=== PATIENT | female | born 2005 | race Caucasian/White ===

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

== ENCOUNTER 2025-01-26 06:59 | Inpatient (IN) | payer MEDICAID, SELFPAY ==
[2025-01-26] VITALS (41 sets, daily range): BP systolic 93–143; BP diastolic 49–92; PULSE 81–132; RESP 14–18; TEMP 36.3–36.9; O2SAT 94–100; BMI 25.2
[2025-01-26] MEDS: Lactated Ringers 1,000 ML 999 ML IV ×3 (07:25→23:59)
[2025-01-26 07:44] LABS: Absolute Lymphocyte Count 0.87 X10^3/uL (0.83-4.51); Absolute Neutrophil Count 10.7 X10^3/uL (2.0-7.7); Basophil# 0.01 X10^3/uL; Basophil% 0.1 % (0-1); Hematocrit 36.6 % (37-47); Lymphocyte # 0.87 X10^3/ul (0.83-4.51); Lymphocyte % 7.3 % (19-41); Mean Corp Hgb Conc 35.5 g/dL (32-36); Mean Corpuscular Hgb 30.4 pg (27.0-32.0); Mean Corpuscular Volume 85.7 fL (81-99); Mean Platelet Vol. 11.3 fl (6.2-12.0); Monocyte# 0.34 X10^3/uL; Monocyte% 2.8 % (0-10); NRBC Flagged by Analyzer 0 % (0-5); Neutrophil # 10.68 X10^3/uL (2.7-7.7); Neutrophil % 89.4 % (47-70); Platelet Count 183 K/mm3 (150-450); RBC Distribution Width SD 43.3 fl (35.1-43.9); Red Blood Count 4.27 M/mm3 (4.2-5.4)
[2025-01-26 08:14] LABS: Syphilis Antibodies Nonreactive (Nonreactive)
[2025-01-26] MEDS: fentaNYL-bupivacaine (epidural) 100 ML BAG EPIDURAL (08:25)
[2025-01-26] MEDS: Lactated Ringers 1,000 ML 200 ML IV (08:30)
--- NOTE | 2025-01-26 09:03 | PCM.HP.OB ---
HPI - General General Date of Admission: 01/26/25 HPI Narrative JOHNSON PARKER, is a 20 F who presents at 40w4d in active labor. Upon arrival, 8cm dilated and requesting epidural for pain management, coping well. Denies any vaginal bleeding or fluid leakage. Maternal Data Information TAL Calculator Estimated Delivery Date Method Current WG Current Estimate 01/22/25 Manual 40w 4d PFSH PFS Medical History (Updated 01/26/25 @ 09:08 by Guerda Pickens CNM) Hx of fracture of finger Home Medications ?Medication ?Instructions ?Recorded ?Last Taken ?Type ferrous sulfate 325 mg (65 mg 325 mg PO MOWEFR 10/16/24 Unknown History iron) tablet vit no.95-ferrous 1 tab PO DAILY 10/16/24 Unknown History fumarate 28 mg-folic acid 800 mcg tablet () Allergy/AdvReac Type Severity Reaction Status Date / Time No Known Allergies Allergy Verified 01/26/25 06:48 Social History Smoking Status: Never smoker History Elective abortions Hx Para 0 Spontaneous abortions Hx # Term Pregnancies Ectopic pregnancies Hx # Pregnancies Multiple births # of living children NST FHR Rate Baby A Baseline: 135 Variability:: Moderate Accelerations:: 15 x 15 Decelerations:: None FHR Category:: Category I Uterine Activity:: every 2-3 minutes, strong ROS Constitutional Constitutional: Reports systems reviewed and no addt'l complaints, except as documented; Denies headache(s) Eyes Eyes: Denies acute decrease in peripheral vision, blurry vision or change in vision ENT HEENT: Reports systems reviewed and no addt'l complaints, except as documented Cardiovascular Cardiovascular: Denies chest pain or dizziness Respiratory/Chest Respiratory/Chest: Denies cough, dyspnea, dyspnea on exertion, shortness of breath at rest or shortness of breath with exertion Gastrointestinal Gastrointestinal: Denies abdominal pain, diarrhea, nausea or vomiting Genitourinary Genitourinary: Denies abdominal discomfort Musculoskeletal Musculoskeletal: Denies limited range of motion Integumentary Integumentary: Reports systems reviewed and no addt'l complaints, except as documented Neurologic Neurologic: Reports systems reviewed and no addt'l complaints, except as documented Psychiatric Psychiatric: Reports systems reviewed and no addt'l complaints, except as documented Endocrine Endocrinology: Reports systems reviewed and no addt'l complaints, except as documented Hematologic/Lymphatic Hematologic/Lymphatic: Reports systems reviewed and no addt'l complaints, except as documented Allergic/Immunologic Allergic/Immunologic: Reports systems reviewed and no addt'l complaints, except as documented Vital Signs Vital Signs Vital Signs: 01/26/25 06:43 01/26/25 06:43 01/26/25 06:43 Temperature Temperature Source Temporal Pulse Rate Respiratory Rate 14 Blood Pressure BP Systolic BP Diastolic Pulse Ox 97 01/26/25 06:43 01/26/25 06:44 01/26/25 06:44 Temperature 98.4 F Temperature Source Pulse Rate 106 H Respiratory Rate Blood Pressure BP Systolic BP Diastolic Pulse Ox 97 01/26/25 06:47 01/26/25 06:47 01/26/25 07:42 Temperature Temperature Source Pulse Rate 93 Respiratory Rate Blood Pressure 132/86 H 143/81 H BP Systolic 132 143 BP Diastolic 86 81 Pulse Ox 01/26/25 07:42 01/26/25 07:42 01/26/25 07:42 Temperature Temperature Source Temporal Pulse Rate 104 H Respiratory Rate 16 Blood Pressure BP Systolic BP Diastolic Pulse Ox 01/26/25 07:42 01/26/25 08:10 01/26/25 08:10 Temperature 97.9 F Temperature Source Pulse Rate 122 H Respiratory Rate Blood Pressure 134/90 H BP Systolic 134 BP Diastolic 90 Pulse Ox 01/26/25 08:10 01/26/25 08:10 01/26/25 08:15 Temperature Temperature Source Pulse Rate 93 Respiratory Rate Blood Pressure 131/88 H BP Systolic 131 BP Diastolic 88 Pulse Ox 99 01/26/25 08:15 01/26/25 08:15 01/26/25 08:23 Temperature Temperature Source Pulse Rate 109 H Respiratory Rate Blood Pressure 138/92 H BP Systolic 138 BP Diastolic 92 Pulse Ox 100 01/26/25 08:23 01/26/25 08:23 01/26/25 08:23 Temperature Temperature Source Pulse Rate 100 102 H Respiratory Rate Blood Pressure BP Systolic BP Diastolic Pulse Ox 99 01/26/25 08:23 01/26/25 08:25 01/26/25 08:25 Temperature Temperature Source Pulse Rate 109 H Respiratory Rate 16 Blood Pressure 137/89 H BP Systolic 137 BP Diastolic 89 Pulse Ox 01/26/25 08:28 01/26/25 08:28 01/26/25 08:30 Temperature Temperature Source Pulse Rate 106 H Respiratory Rate Blood Pressure 138/76 H BP Systolic 138 BP Diastolic 76 Pulse Ox 99 01/26/25 08:30 01/26/25 08:31 01/26/25 08:31 Temperature Temperature Source Pulse Rate 126 H 123 H Respiratory Rate Blood Pressure 137/70 H BP Systolic 137 BP Diastolic 70 Pulse Ox 01/26/25 08:33 01/26/25 08:33 01/26/25 08:35 Temperature Temperature Source Pulse Rate 132 H Respiratory Rate Blood Pressure 134/78 H BP Systolic 134 BP Diastolic 78 Pulse Ox 99 01/26/25 08:35 01/26/25 08:38 01/26/25 08:38 Temperature Temperature Source Pulse Rate 109 H 102 H Respiratory Rate Blood Pressure BP Systolic BP Diastolic Pulse Ox 99 01/26/25 08:41 01/26/25 08:41 01/26/25 08:43 Temperature Temperature Source Pulse Rate 106 H 103 H Respiratory Rate Blood Pressure 130/80 H BP Systolic 130 BP Diastolic 80 Pulse Ox 01/26/25 08:43 01/26/25 08:46 01/26/25 08:46 Temperature Temperature Source Pulse Rate 102 H Respiratory Rate Blood Pressure 127/76 H BP Systolic 127 BP Diastolic 76 Pulse Ox 99 01/26/25 08:48 01/26/25 08:48 01/26/25 08:50 Temperature Temperature Source Pulse Rate 117 H Respiratory Rate Blood Pressure 114/64 BP Systolic 114 BP Diastolic 64 Pulse Ox 99 01/26/25 08:50 01/26/25 08:56 01/26/25 08:56 Temperature Temperature Source Pulse Rate 127 H 108 H Respiratory Rate Blood Pressure 134/84 H BP Systolic 134 BP Diastolic 84 Pulse Ox Weight Weight: 152 lb Body Mass Index (BMI) 25.2 Physical Exam Const alert and oriented x3 General Appearance: cooperative Orientation / Consciousness: awake, oriented to person, oriented to place and oriented to time Exam Limitations: no limitations HEENT normocephalic Head and Scalp: normal to inspection, normocephalic and atraumatic Face and Sinus: normal facial exam Eyes General Eye: normal appearance of both eyes Neck full ROM Chest Chest: symmetrical chest wall rise Resp normal respiratory effort and normal air movement Auscultation: clear to auscultation bilaterally Cardio regular rate, regular rhythm, S1 normal heart sound, S2 normal heart sound, no murmurs, no rub, no gallops and no clicks GI normal to inspection, nondistended, normoactive bowel sounds and non-tender appearance of the vagina normal Bladder / Kidney Exam: no CVA tenderness Manual OB Exam: estimated gestational size appropriate, presentation cephalic, dilated 10, effaced 100, station +2 and other AROM clear fluid, small amount Back/Spine normal ROM Extremity normal to inspection and full ROM Skin no rashes or lesions noted Neuro oriented x3, CN's II-XII intact bilaterally and moves all extremities Sensorium / Orientation: awake, alert and oriented to person Motor Exam: clonus absent Deep Tendon Reflexes: Rt Patellar (L4): 2+ and Lt Patellar (L4): 2+ Labs Labs Labs: Blood Type B POSITIVE Antibody Screen Pending Hct 36.6 % (37-47) L Hgb 13.0 g/dL (12.0-15.0) Syphilis Total Ab Nonreactive (Nonreactive) GBS negative RPR negative 1hr GCT negative Rubella Immune HBsAG negative HepC negative HIV negative B positive Rubella Immune Assessment & Plan (1) 40 weeks gestation of : (2) Active labor at term: PLAN: Plan 1) Admit to labor and delivery 2) Routine labs 3) Continuous EFM 4) Epidural for pain management 5) Expect vaginal delivery soon 6) collaborative physician and notified of patient status, above assessment, and plan.
[2025-01-26] MEDS: TRANEXAMIC ACID 1,000 MG in 0.9% Normal Saline (100mL Bag) 100 ML 440 MG IV (11:45)
[2025-01-26] MEDS: Cefazolin 2 GM in 0.9% Normal Saline (100mL Bag) 100 ML IV (11:48)
[2025-01-26] MEDS: Azithromycin 500 MG in 0.9% Normal Saline (250mL Bag) 250 ML 255 MG IV (11:54)
--- NOTE | 2025-01-26 12:20 | OP.PCM_ITS ---
Maternal Data Information TAL Calculator Estimated Delivery Date Method Current WG Current Estimate 01/22/25 Manual 40w 4d Operative Report (OB) Details Procedure Type: low transverse Date of Procedure: 01/26/25 Procedure Start Time: 11:40 Procedure Stop Time: 12:37 Time of Delivery: 11:42 Pre-Operative Diagnosis: Distress, Arrrest of Descent and Failed vaccuum extraction Post-Operative Diagnosis: Same as Pre-operative diagnosis Classification: Stat Type of Anesthesia: Epidural Special Medications: TXA, Hemoblast Antibiotic Given: Ancef 2 grams IV x1 and Zithromax 500 mg/5 mL X1 Drain: Velazquez to straight drain Estimated Blood Loss: 600 Fluids Replaced: 700 Findings Description of surgery: After informed consent was obtained the patient was taken the operating room. She was then placed in the supine position. She was prepped and draped in the normal sterile fashion. Anesthesia was found to be adequate. At this time a Pfannenstiel skin incision was made with a knife was carried down to the underlying layer of the fascia. The fascial incision was then extended laterally using traction. Rectus muscles were then in the midline bluntly and peritoneum was entered bluntly. Gentle opposing traction was placed. At this time the vesicouterine peritoneum was identified. Scalpel was used to make a uterine incision in a low transverse fashion. The uterus was then entered bluntly gentle opposing traction was placed to extend this incision. Membranes were ruptured clear. Infant's head was brought to the uterine incision was delivered atraumatically. Infant was vigorous at delivery. Cord was clamped and cut was handed to the waiting nursery team. The Placenta was removed from the uterus. The uterus was then removed from the abdominal cavity. The uterus was cleared of all clots and debris using a lap. At this time the uterine incision was reapproximated using #1 Vicryl in a running locked fashion. Extension appreciated down the left aspect of the cervix. This was reapproximated using #1 Vicryl suture in a running locked fashion. This was brought to the hysterotomy site and incorporated into the incision repair. Hemostasis was appreciated. Posterior cul-de-sac was then cleared of all clots and debris. Uterus was placed back in the abdominal cavity. Gutters were cleared of all clots and debris. Uterine incision was reevaluated and noted to be of excellent hemostasis. Hemo blast was applied. At this time the peritoneum was grasped with Kellys reapproximated using #2 Vicryl suture in a running fashion. Fascia was then reapproximated using #1 Vicryl in a running fashion. Subcu layer was irrigated with NS, reapproximated with #2 0 plain gut suture in an interrupted fashion. Subcu layer was closed using 4-0 Monocryl in a subcu fashion. Dry sterile dressing was applied. Instrument lap needle count correct ?2. Anticipated normal postoperative course. Surgical findings: Normal tubes and ovaries bilaterally extension down the left cervix. Good hemostasis appreciated. Presentation: Vertex Amniotic Fluid Description: Clear Placental Delivery Description: Expressed Placenta Disposition: [facility] Specimen collected: No Cord Vessel Description: 3 Vessels Cord Entanglement: None Cord Gases: ABG and VBG A gender: Female (1 minute): 9 (5 minute): 9 Delayed Cord Clamping: No Fiber Artist alteration tailor apprentice: Yes Fountain Manager: jayna rodas PGY3 Tasks completed by assistant director: Opening & closing, Dissecting tissue and Retracting Additional autopsy assistant?: Yes Additional Power Equipment Mechanics Instructor #2: Ronald Lacy Tasks completed by autopsy assistant #2: Closing and Retracting Additional autopsy assistant?: No Complications Complications: No
--- NOTE | 2025-01-26 12:34 | PCM.PN.BLA ---
Progress Note The patient was examined and complete +2 station. She was pushing with excellent effort and heart tones noted to be in 70s for approx 4 minutes so patient was counseled on the risks, benefits, alternatives to vacuum assisted vaginal delivery and she was agreeable. The Kiwi flat vacuum was selected and placed on head at the occiput and was determined to be placed correctly without maternal tissue involvement on palpation. The vacuum was then pumped up the green zone pressure and there were 2 pulls with 1 pop off and no descent so the patient was counseled on primary section for failed operative delivery, arrest of descent, and distress. The FHT was noted to be in the 70s for approx 6 minutes prior to CS was called. See Dr. Haines operative report for further details for the case. Vaginal exam was conducted after closing the skin incision and she was noted to have a small first degree perineal laceration which was hemostatic and did not require repair.
--- NOTE | 2025-01-26 12:50 | RAD_ITS ---
PROCEDURE: ABDOMEN SINGLE VIEW (PORTABLE) 01/26/2025 REASON FOR EXAM: SURGICAL INSTRUMENT COUNT TECHNIQUE: Single view abdomen. COMPARISON: None FINDINGS: No radiopaque foreign body seen. RAD/Abdomen Single View (Portable) IMPRESSION: No radiopaque foreign body seen. Reading Location: [place] [id number]
[2025-01-26] MEDS: Oxytocin 15 Units/NS 250ml 15 UNITS/250 ML IV.SOLN 83 UNITS IV (13:00)
[2025-01-26] MEDS: Acetaminophen 500 MG Tablet 1000 MG PO ×2 (13:58→19:48)
[2025-01-26] MEDS: Ketorolac 30 MG/ML Syringe IV ×2 (13:59→19:49)
[2025-01-26] MEDS: Lactated Ringers 1,000 ML 100 ML IV (15:33)
[2025-01-27 00:13] VITALS: BP 106/58; PULSE 98; RESP 16; TEMP 36.4; O2SAT 98
[2025-01-27] MEDS: Acetaminophen 500 MG Tablet 1000 MG PO ×4 (01:59→19:48)
[2025-01-27 03:36] VITALS: BP 107/58; PULSE 105; RESP 16; TEMP 36.5; O2SAT 98
[2025-01-27 04:18] LABS: Hematocrit 28.7 % (37-47); Hemoglobin 9.8 g/dL (12.0-15.0); Mean Corp Hgb Conc 34.1 g/dL (32-36); Mean Corpuscular Hgb 29.6 pg (27.0-32.0); Mean Corpuscular Volume 86.7 fL (81-99); Mean Platelet Vol. 10.9 fl (6.2-12.0); Platelet Count 129 K/mm3 (150-450); RBC Distribution Width CV 14.3 % (11.6-14.6); RBC Distribution Width SD 45.5 fl (35.1-43.9); Red Blood Count 3.31 M/mm3 (4.2-5.4); White Blood Count 11.4 K/mm3 (4.4-11.0)
[2025-01-27 07:47] VITALS: BP 109/79; PULSE 114; RESP 16; TEMP 36.3; O2SAT 98
[2025-01-27 07:49] VITALS: PULSE 114; O2SAT 98
--- NOTE | 2025-01-27 08:46 | PN.OBGYN_ITS ---
Subjective Subjective Patient seen at bedside. Denies headache, vision changes, SOB or CP. Urine output is low. Toradol being held. Objective Data Objective Data Vital Signs: Vital Signs Temp Pulse Resp BP Pulse Ox O2 Del Method 97.3 F L 114 H 16 109/79 98 Room Air 01/27/25 07:47 01/27/25 07:49 01/27/25 07:47 01/27/25 07:47 01/27/25 07:49 01/27/25 07:49 Oxygen Delivery Method Room Air Weight: 152 lb Body Mass Index (BMI) 25.2 Intake & Output: Intake and Output for Last 24 Hours 01/25/25 01/26/25 01/27/25 23:59 23:59 23:59 Intake Total 4139.03 / 4139.03 1000 / 1000 Output Total 900 / 900 325 / 325 Balance 3239.03 / 3239.03 675 / 675 Lab / Micro Data Attestation: I reviewed the patient's lab results. 01/27/25 04:05 Labs: Laboratory Results - last 24 hr 01/26/25 07:25: Blood Type B POSITIVE, Antibody Screen NEGATIVE 01/27/25 04:05: WBC 11.4 H, RBC 3.31 L, Hgb 9.8 L, Hct 28.7 L, MCV 86.7, MCH 29.6, MCHC 34.1, RDW Std Deviation 45.5 H, RDW Coeff of Kym 14.3, Plt Count 129 L, MPV 10.9 Radiography Diagnostic Testing: Radiology Impression KUB X-Ray 01/26/25 12:50 IMPRESSION: No radiopaque foreign body seen. Reading Location: [address] Eyes Eyes: Denies blurry vision, spots in vision or tunnel vision ENT HEENT: Denies dizziness or headache(s) Cardiovascular Cardiovascular: Reports systems reviewed and no addt'l complaints, except as documented, dizziness and dyspnea Respiratory/Chest Respiratory/Chest: Reports systems reviewed and no addt'l complaints, except as documented Gastrointestinal Gastrointestinal: Reports systems reviewed and no addt'l complaints, except as documented Genitourinary Genitourinary: Reports systems reviewed and no addt'l complaints, except as documented Neurologic Neurologic: Denies abnormal speech, dizziness, headache(s), syncope or vertigo Psychiatric Psychiatric: Reports systems reviewed and no addt'l complaints, except as documented Physical Exam Const alert and no apparent distress General Appearance: cooperative Orientation / Consciousness: awake, oriented to person and oriented to place Exam Limitations: no limitations HEENT normocephalic Eyes General Eye: normal appearance of both eyes Neck full ROM Chest Chest: symmetrical chest wall rise Resp normal respiratory effort, normal air movement and clear to auscultation bilaterally Auscultation: clear to auscultation bilaterally Cardio regular rate and regular rhythm GI normal to inspection, nondistended, normoactive bowel sounds Uterus Palpation: uterus fundus firm Extremity full ROM and no calf tenderness Skin no rashes or lesions noted Neuro oriented x3 Psych mental status grossly normal and activity/motor behavior normal Assessment & Plan (1) Low urine output: (2) Status post delivery: (3) Post-operative pain: (4) Anemia due to blood loss: PLAN: Plan POD 1 Primary C/S Pain control Ambulate today Continue to monitor urine output Start oral iron
[2025-01-27] MEDS: Senna/Docusate Sodium 1 Tablet PO (11:21)
[2025-01-27 12:02] VITALS: BP 113/82; PULSE 113; RESP 16; TEMP 36.7
[2025-01-27] MEDS: Ferrous Sulfate 325 MG Tablet PO ×2 (12:29→18:13)
[2025-01-27] MEDS: Ibuprofen 600 MG Tablet PO ×2 (13:16→19:47)
--- NOTE | 2025-01-27 15:00 | CASEMGMT ---
Social Work Labor and Delivery Unit Patient Address: [address] [place], [place] [id number] Phone number: [phone] Date and Time of Referral:? 01/26/25, 1513 Referred By: Dr. Haines Date and time of intervention:? 01/27/25, 1430 Reason for Referral:?? flat affect and resources Sw completed chart review and acknowledges social work consult due to maternal flat affect and potential need for resources. Sw presented to bedside and introduced self to mother of baby (VITALY Garcia). Sw explained reason for sw involvement and completed psychosocial assessment. Informant:?? Medical record and mother of baby (MOB) History:? TATYANA is 20 year old female who is 1, para 0- now 1 following labor and delivery. TATYANA presented to hospital in active labor on 01/26/25 at 40 weeks gestation. Baby started to have decels and an emergent was required for delivery, DEVANTE called. Baby girl, named Tammi Wren, was born weighing 7lb 7oz with apgars of 9 and 9 at one and five minutes of life, respectfully. TATYANA is pumping and using bottles for feed baby. MOB reports that baby will be followed by [facility] for pediatrics. MOB states that she and FOSharlene are currently living together. Father of baby (FOB- Miguel) and MOB have been together for almost two years after meeting on [employer]. This is fifth baby for FOB. MOB reports that FOSharlene sees his older two children: Adair (9) and Julia (7) in the summer as they reside in [place]. MOB states that FOB's two younger children (ages 2 and 1) he does not see because their mother does not allow him to. MOB states that that baby srini doesn't like anyone. MOB states that baby was planned and accepted and when FOB learned of he was excited. MOB states that she has obtained all necessary baby supplies for baby including: car seat, safe sleep space, clothes, diapers and wipes. MOB states that she and FOB drive and have reliable transportation. MOB and FOB both completed high school, where MOB states she did have an IEP to help her in all subjects. MOB states that she learns best with hands on opportunities. 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 When both parents have returned to work, MOB is able to take baby to work with her. TATYANA is connected to several community resources, including: [employer], [email or web address] and WIC. MOB states that AWILDA has history of anxiety and depression, he is not prescribed medication to help him manage his symptoms. MOB denies mental health history, and reports that she is familiar with the terms, baby blues and anxiety and depression. Sw pointed out to MOB that she appears as though something is wrong, and asked MOB if she is okay. MOB stated that she is just tired. Sw asked MOB how she is feeling since discovering she was , to having an emergency delivery to now having baby. MOB states that when she learned that she was she was happy. MOB states that she was not scared or worried during labor/ delivery. MOB states that now that baby is here she is happy and thankful. While talking to MOB she was observed to hold baby in loving way. MOB was educated on shaken baby prevention and ABC's of safe sleep. MOB expressed understanding. MOB states that her mom is her biggest support, and will be available to help MOB when she needs something. MOB denies substance use prior to and during , as well as any family history of addiction or significant mental health diagnoses. Assessment:? MOB was laying in bed comfortably holding baby throughout conversation. MOB was receptive to meeting with sw. FOB not present at this time, and MOB denies any concerns of domestic violence or intimate partner violence, stating that AWILDA is her biggest support person aside from her Mom. MOB had low affect, facial expressions did not change throughout conversation aside from when sw asked MOB if she was okay, to which she smiled to and said she is just tired. MOB has obtained all necessary baby items and has supports in place. MOB was holding baby close to her and states that she feels a connection/ hutton with baby. MOB answered questions but did not elaborate on answers provided. Plan:??? MOB and baby to be discharged when medically ready. Sw provided literature to MOB regarding: safe sleep space, shaken baby prevention, signs and symptoms of baby blues and depression, list of county resources and Help Me grow. No further needs requested or indicated. Alana Hull, BOTTLING MACHINE OPERATOR, TANK BUILDER AND ERECTOR
[2025-01-27 19:44] VITALS: BP 111/76; PULSE 102; RESP 18; TEMP 36.4; O2SAT 97
[2025-01-28] MEDS: Ibuprofen 600 MG Tablet PO ×4 (01:49→20:35)
[2025-01-28] MEDS: Acetaminophen 500 MG Tablet 1000 MG PO ×4 (01:49→20:35)
[2025-01-28 01:50] VITALS: BP 114/79; PULSE 106; RESP 16; TEMP 36.4; O2SAT 97
--- NOTE | 2025-01-28 06:44 | PCM.PN.CNM ---
Subjective Subjective Patient seen at bedside. Denies headache, vision changes, SOB or CP. Ambulating and voiding without difficulty. Passing flatus. Lochia decreased. Formula feeding. Objective Data Objective Data Vital Signs: Vital Signs Temp Pulse Resp BP Pulse Ox O2 Del Method 97.6 F L 106 H 16 114/79 97 Room Air 01/28/25 01:50 01/28/25 01:50 01/28/25 01:50 01/28/25 01:50 01/28/25 01:50 01/28/25 01:50 Oxygen Delivery Method Room Air Weight: 152 lb Body Mass Index (BMI) 25.2 Intake & Output: Intake and Output for Last 24 Hours 01/26/25 01/27/25 01/28/25 23:59 23:59 23:59 Intake Total 4139.03 / 4139.03 1751.67 / 1751.67 Output Total 900 / 900 1225 / 1225 Balance 3239.03 / 3239.03 526.67 / 526.67 Lab / Micro Data Attestation: I reviewed the patient's lab results. 01/27/25 04:05 ROS Eyes Eyes: Denies blurry vision, spots in vision or tunnel vision ENT HEENT: Denies dizziness or headache(s) Cardiovascular Cardiovascular: Reports systems reviewed and no addt'l complaints, except as documented, dizziness and dyspnea Respiratory/Chest Respiratory/Chest: Reports systems reviewed and no addt'l complaints, except as documented Gastrointestinal Gastrointestinal: Reports systems reviewed and no addt'l complaints, except as documented Genitourinary Genitourinary: Reports systems reviewed and no addt'l complaints, except as documented Neurologic Neurologic: Denies abnormal speech, dizziness, headache(s), syncope or vertigo Psychiatric Psychiatric: Reports systems reviewed and no addt'l complaints, except as documented Physical Exam Const alert and no apparent distress General Appearance: cooperative Orientation / Consciousness: awake, oriented to person and oriented to place Exam Limitations: no limitations HEENT normocephalic Eyes General Eye: normal appearance of both eyes Neck full ROM Chest Chest: symmetrical chest wall rise Resp normal respiratory effort, normal air movement and clear to auscultation bilaterally Auscultation: clear to auscultation bilaterally Cardio regular rate and regular rhythm GI normal to inspection, nondistended, normoactive bowel sounds Uterus Palpation: uterus fundus firm Extremity full ROM and no calf tenderness Skin no rashes or lesions noted Neuro oriented x3 Psych cooperative Attitude: withdrawn Activity / Motor Behavior: appropriate eye contact Mood & Affect: flat affect Assessment & Plan (1) Anemia due to blood loss: (2) Post-operative pain: (3) Status post delivery: PLAN: Plan Urine output WNL Pain controlled with PO Tylenol and Motrin Continue oral iron supplementation Encourage ambulation Social work to see patient- some concerns from nursing over lack of care for / sleeping in bed with infant/ patient flat affect Anticipate D/C home tomorrow
[2025-01-28 08:58] VITALS: BP 118/88; PULSE 100; RESP 16; TEMP 36.6
[2025-01-28] MEDS: Ferrous Sulfate 325 MG Tablet PO ×2 (11:52→18:49)
[2025-01-28] MEDS: Senna/Docusate Sodium 1 Tablet PO (11:52)
--- NOTE | 2025-01-28 14:49 | CASEMGMT ---
Labor and Delivery Social Work Brief Assessment Date: 01/28/25 Time: 929 History: Sw informed by bedside RN that over night mother of baby (MOBTrevor Garcia) asked that baby to be kept at the nurses station. Nurse reports that the baby was returned to bedside at 0400, and MOB stated that she did not want her, at that time both MOB and father of baby (FOB) were asleep. Baby then returned to MOB at 0600 and she was informed by nursing staff that MOB needed to feed baby. When nursing staff returned to room to check on MOB and baby, both were asleep in bed, and baby was close to falling to floor, FOB still asleep. Sw presented to bedside and reintroduced self to MOB and to FOB. Sw stated that there have been several concerns brought to sw attention, and told parents that sw is concerns that parents do not have a plan for feeding baby throughout night time feeds when discharged to home. Sw stated that it is the responsibility of MOB and FOB to determine who will be responsible for doing what care for baby. FOB states that he works during the day, so MOB will need to care for baby during the day, and then he can help some at night. AWILDA states that he is used to only sleeping 4-5 hours at night, when asked why that is, he states that he is used to caring for his two older children. Sw pointed out to AWILDA that his two older children (and two younger children as well) do not live with him, and are 9 and 7 years old. AWILDA states well, I worry about them. Let's just say that I am an overprotective parent. When asked what that meant, AWILDA stated that he does not let just anyone around his children, he has stranger danger. Sw reiterated the importance of MOB and FOB working as a team to provide 24 hour care to baby. Sw asked MOB what her understanding is regarding baby's feeds. MOB states that she is no longer pumping and has chosen for formula feed baby with bottles. MOB states that she was informed that the baby can have 20mL of formula every 2 hours. Sw reinforced this and stated that it is also important that parents are not overfeeding the baby, and educated parents on side effects of overfeeding, and also importance of sticking to a feed schedule of every 2-3 hours. Sw explained to parents that they need to follow station baggage agent instructions on how much and how often to feed the baby, and stick to those guidelines until their ongoing station baggage agent informs that they can provide more volume and less frequently. MOB nodded head in understanding. Sw also expressed concern to parents that FOSharlene was asleep all night and was not at all active in baby care, as well as MOB being found to be sleeping in bed with baby in bed with her. Sw expressed importance of always practicing safe sleep and asked again if parents have a safe sleep space for baby at home. MOB states that they have a bassinet for baby that she will sleep in. FOB states that they just moved and do not have a bed frame for their room, so until they get one MOB is going to sleep on the couch with baby in the bassinet as it will be easier for her opposed to sleeping on the mattress on the floor. Sw asked parents if they are able to come up with a plan for when they go home and have to get up to care for baby in the middle of the night. MOB stated that she was tired last night, but is aware that she will need to get up regularly to care for baby when home. Sw asked FOB what his responsibilities will be for baby when home. FOB stated that he will also help as necessary, and stated that they have other family members that can be supports to them who can also help. Sw told AWILDA that as a parent it is his responsibility to provide care and nurture baby, that it does not just include feeds, but also holding her and changing her, and comforting her when she cries. FOB nodded his head. Sw stated that it is nice that they have family who can help when available, but MOB and FOB are the primary caregivers to baby because they are her parents. MOB also nodded her head, and states that since having baby she feels a connection to her and feels a hutton. Sw also discussed baby blues and depression with parents. Sw asked MOB to complete an [place] Depression Scale due to her affect being flat and disengaged from care with baby. MOB's score was a 0. Sw educated parents on signs and symptoms of baby blues and depression and anxiety. Plan: MOB and baby staying admitted one more night to ensure that parents prove to be more involved and active in hands on care of baby prior to discharge. Sw provided MOB with contact information for [facility] Picking Crew Supervisor for her to make follow up apt with when necessary. Sw continue to follow and provide support and education as appropriate and necessary throughout duration of admission. Alana Hull, RADIO TIME SALES SUPERVISOR, CLINICAL VETERINARIAN
[2025-01-28 17:52] VITALS: BP 113/82; PULSE 92; RESP 16; TEMP 36.3; O2SAT 97
[2025-01-28] MEDS: Etonogestrel 68 MG IMPLANT SC (18:45)
--- NOTE | 2025-01-28 18:53 | EX.PCM.OBRPT ---
Maternal Data Information TAL Calculator Estimated Delivery Date Method Current WG Current Estimate 01/22/25 Manual 40w 6d
[2025-01-28] MEDS: Lidocaine 1% (20 ml mdv) 20 ML Vial INFILT (18:56)
[2025-01-28 20:31] VITALS: BP 118/74; PULSE 87; RESP 16; TEMP 36.3; O2SAT 98
[2025-01-29 02:35] VITALS: BP 119/86; PULSE 74; RESP 16; TEMP 36.4; O2SAT 97
[2025-01-29] MEDS: Acetaminophen 500 MG Tablet 1000 MG PO ×2 (02:39→08:23)
[2025-01-29] MEDS: Ibuprofen 600 MG Tablet PO ×2 (02:39→08:23)
--- NOTE | 2025-01-29 07:24 | PRO.PCM_ITS ---
Problems Associated Problem List Diagnoses (1) Nexplanon insertion: Non-invasive Procedural Procedure Information Date of Procedure: 01/28/25 Pre-Procedure Diagnosis: desires contraception Post-Procedure Diagnosis: nexplanon insertion Procedure Performed:: insertion of subdermal contracpetive device per diem physical therapist assistant: No Procedure Time Out: 18:30 Procedure Start Time: 18:32 Procedure Stop Time: 18:36 Special Medications: lidocaine 1% Description of procedure: Nexplanon Insertion Procedure Note PRE-OP DIAGNOSIS: desired long-term, reversible contraception POST-OP DIAGNOSIS: Same PROCEDURE: Nexplanon placement Site: Left Arm Sterile Preparation: Betadine Insertion site was selected 8 ? 10 cm from medial epicondyle Procedure area was prepped and draped in a sterile fashion. 2 mL of 1% lidocaine without epinephrine used for subcutaneous anesthesia. Anesthesia confirmed. Nexplanon trocar was inserted subcutaneously and then Nexplanon capsule delivered subcutaneously Trocar was removed from the insertion site. Nexplanon capsule was palpated by provider and patient to assure satisfactory placement. Estimated blood loss of scant Adhesive Dressing applied The patient tolerated the procedure well without complications. Standard post- procedure care is explained and return precautions are given Complications Complications: No
--- NOTE | 2025-01-29 07:30 | PCM.PN.OB ---
Subjective Subjective Doing well. Ambulating and voiding without difficulty. Mild lochia. Breast feeding. Nexplanon placed yesterday. Objective Data Objective Data Vital Signs: Vital Signs Temp Pulse Resp BP Pulse Ox O2 Del Method 97.5 F L 74 16 119/86 H 97 Room Air 01/29/25 02:35 01/29/25 02:35 01/29/25 02:35 01/29/25 02:35 01/29/25 02:35 01/29/25 02:35 Oxygen Delivery Method Room Air Weight: 68.946 kg Body Mass Index (BMI) 25.2 Intake & Output: Intake and Output for Last 24 Hours 01/27/25 01/28/25 01/29/25 23:59 23:59 23:59 Intake Total 1751.67 / 1751.67 Output Total 1225 / 1225 Balance 526.67 / 526.67 Lab / Micro Data 01/27/25 04:05 ROS Constitutional Constitutional: Denies headache(s) Cardiovascular Cardiovascular: Denies chest pain or dyspnea Gastrointestinal Gastrointestinal: Denies nausea or vomiting Genitourinary Genitourinary: Denies dysuria Physical Exam Const alert General Appearance: cooperative Eyes PERRL and EOMs intact bilaterally Resp normal respiratory effort GI soft to palpation and non-tender GI Narrative: soft, moderate distention, fundus firm, appropriately tender. Abdominal bandage clean dry and intact Uterus Palpation: uterus fundus firm ( below umbilicus) Extremity normal to inspection and full ROM Neuro oriented x3 and CN's II-XII intact bilaterally Psych mental status grossly normal Assessment & Plan (1) Status post delivery: PLAN: Plan Discharge home today
--- NOTE | 2025-01-29 07:31 | PCM.DC.SUM ---
Providers Date of Admission: 01/26/25 Date of Discharge: 01/29/25 Primary Care Physician: Dr. Davonte Cervantes MD Reason For Visit: LABOR/DEL C SEC Diagnosis Discharge Diagnosis (1) Status post delivery: Status: Acute Code(s): Z98.891 - History of uterine scar from previous surgery Plan Discharge home today Medications at Discharge Home Medications ferrous sulfate 325 mg (65 mg iron) tablet 325 mg PO MOWEFR 10/16/24 vit no.95-ferrous fumarate 28 mg-folic acid 800 mcg tablet () 1 tab PO DAILY 10/16/24 acetaminophen 500 mg tablet 1,000 mg (2 x 500 mg) PO Q6H #60 tabs 01/29/25 ibuprofen 600 mg tablet 600 mg PO Q6H #60 tabs 01/29/25 Hospital Course Operations section Procedures None Summary of Care Provided Minutes Spent on Discharge: 20 Hospital Course: Admitted inactive labor. PCS for failure to descend. Breast feeding. Nexplanon placed on POD #1 Physical Exam Const alert General Appearance: cooperative GI GI Narrative: soft, moderate distention, fundus firm, appropriately tender. Abdominal bandage clean dry and intact Weight / BMI Weight Weight: 68.946 kg Body Mass Index (BMI) 25.2 ABG / Lab / Microbiology Data 01/27/25 04:05 D/C Instructions Discharge Diet: No restrictions May resume sexual activity in: 4-6 weeks Lifting Restrictions: 20 pounds Additional Activity Instructions: Nothing in the vagina for 4-6 weeks. You may return to work/school in 6 weeks. Call your doctor if your incision/area has: Continuous Slow Oozing, Sudden Increased Bleeding, Increased Pain/ Swelling, Increased Redness and Foul Smelling Discharge Call your doctor if you observe: Fever of 101 or Higher and Using more than 1 pad per hour (for 2 hours) Suture Line Care: Avoid Pulling/Pushing and Avoid Pinching/Bending Cleanse incision/area with: Keep Dressing Clean & Dry DC O2, CPAP, BIPAP Needs Home O2 Discharge instructions: No Please Follow Up With: Adriana Fox MD When: Call to make an appointment for an incision check in 1-2 [phone]. You will need a post check in 6 weeks. Meaningful Use Info Meaningful Use Meaningful Use Diagnoses (Choose all that apply): None applicable Ischemic Stroke Statin Dosing Therapy Reference: STATIN DOSE THERAPY REFERENCE: * Patients > 75 years receive moderate or high dose statin therapy. * Patients 75 years or YOUNGER should receive HIGH intensity statin dose unless contraindicated. You will be required to document reason for non-treatment if statin daily dose does not meet guidelines. HIGH DOSE STATIN THERAPY DAILY Atorvastatin > than or = to 40 mg Rosuvastatin > than or = to 20 mg Amlodipine + Atorvastatin > than or = to 2.5/40 mg Ezetimibe + Simvastatin 10/80 mg Simvastatin 80mg Discharge Plan Admission Admit Date/Time: 01/26/25 06:59 Primary Reason for Your Visit: labor Attending Provider: Jennifer Pugh Primary Care Provider: Davonte Cervantes Discharge Orders/Prescriptions Prescriptions: New acetaminophen 500 mg Tablet 1,000 mg PO Q6H Qty: 60 1RF ibuprofen 600 mg Tablet 600 mg PO Q6H Qty: 60 0RF Continued ferrous sulfate 325 mg (65 mg iron) tablet 325 mg PO MOWEFR PNV cmb#95-ferrous fumarate-FA [] 28 mg iron- 800 mcg tablet 1 tab PO DAILY Referrals / Follow Up: Davonte Cervantes MD [Primary Care Provider] - Disposition Disposition (needs filled in before D/C Order can be placed): Home, Self Care
[2025-01-29 08:03] VITALS: BP 136/93; PULSE 116; RESP 18; TEMP 36.4; O2SAT 97
[2025-01-29 08:14] VITALS: PULSE 116
[2025-01-29 10:46] VITALS: BP 136/93; PULSE 116; RESP 18; TEMP 36.4; O2SAT 97
--- NOTE | 2025-02-02 10:40 | NURSING ---
Follow up phone call made, no answer, voicemail left.
--- NOTE | 2025-05-03 13:42 | NURSING ---
chart reviewed for accuracy of documentation. 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
== END 2025-01-29 11:05 | disposition home or self-care (01) | DRG 540 ==
LOC: WPOUT 10:58 → WP 10:58
PROVIDERS: Obstetrics & Gynecology; Student in an Organized Health Care Education/Training Program; Admitting Provider Obstetrics & Gynecology; PCP Family Medicine; Referring Provider Obstetrics & Gynecology; Visit Provider Obstetrics & Gynecology
DX: O64.8XX0 Obstructed labor due to other malposition and malpresentation, not applicable or unspecified (principal); D50.0 Iron deficiency anemia secondary to blood loss (chronic); O66.5 Attempted application of vacuum extractor and forceps; O99.893 Other specified diseases and conditions complicating puerperium; R39.198 Other difficulties with micturition; O76 Abnormality in fetal heart rate and rhythm complicating labor and delivery; O70.0 First degree perineal laceration during delivery; Z3A.40 40 weeks gestation of pregnancy; Z37.0 Single live birth; O90.81 Anemia of the puerperium; Z30.017 Encounter for initial prescription of implantable subdermal contraceptive
CPT/HCPCS: 59050; 74018; 85025; 85027; 86780; 86850; 86900; 86901; 99221; G0378; J2405